=== PATIENT | male | born 1995 | race Two or more races ===

== ENCOUNTER 2020-11-24 00:51 | Emergency (ER) | payer OTHER ==
[~2020-11-24] VITALS: Ht 175.3 cm; Wt 85.5 kg
[~2020-11-24 00:51] MED LIST: NOCURR
[2020-11-24 00:54] VITALS: BP 125/70
== END 2020-11-24 03:02 | disposition home or self-care (01) ==
LOC: EMS 00:51
DX: S67.196A Crushing injury of right little finger, initial encounter (principal); S67.21XA Crushing injury of right hand, initial encounter; J45.909 Unspecified asthma, uncomplicated; F12.90 Cannabis use, unspecified, uncomplicated; W21.02XA Struck by soccer ball, initial encounter; Y93.66 Activity, soccer; Y92.89 Other specified places as the place of occurrence of the external cause; Y99.8 Other external cause status
CPT/HCPCS: 99283